=== PATIENT | male | born 1990 | race Caucasian/White ===

== ENCOUNTER → 2017-03-03 | Outpatient (REF) | payer OTHER | LOC: M LAB REF 13:04 | PROVIDERS: ATTEND Internal Medicine Medical Oncology | DX: C62.90 Malignant neoplasm of unspecified testis, unspecified whether descended or undescended (principal) ==

== ENCOUNTER → 2017-03-25 | Outpatient (REF) | payer OTHER ==
[2017-03-25 14:07] LABS: INR 1.01
== END ==
LOC: M LAB REF 13:04
PROVIDERS: ATTEND Internal Medicine Medical Oncology
DX: C62.90 Malignant neoplasm of unspecified testis, unspecified whether descended or undescended (principal)

== ENCOUNTER → 2017-03-29 | Outpatient (CLI) | payer OTHER ==
[~2017-03-29] MED LIST: LIDOCAINE 2% MDV 20 ML VIAL As Ordered ONE; MIDAZOLAM INJ 2 MG/2 ML VIAL (J2250) As Ordered ONE; ceFAZolin 1GM INJ (J0690) As Ordered ONE; fentaNYL 100 MCG/2 ML INJECTION (J3010) As Ordered ONE
--- NOTE | 2017-04-07 13:54 | REPIR ---
DATE OF PROCEDURE: 03/29/2017 PREPROCEDURE DIAGNOSIS: Poor venous access. POSTPROCEDURE DIAGNOSIS: Poor venous access. PROCEDURE: Ultrasound and fluoroscopic guided right internal jugular vein Port-a-cath placement. SURGEON: Dr. Gregg Burden. QUARTER INSPECTOR: ANESTHESIA: Local with sedation with 1 mg of Versed, 50 mcg of Fentanyl and 40 mL of 2% lidocaine. ESTIMATED BLOOD LOSS: FLUORO TIME: 2.222 minutes. CONTRAST: None. ANCEF: 1 gram. SEDATION TIME: From 10:25 a.m. to 10:50 a.m. for a total of 25 minutes. COMPLICATIONS: None. DRAINS: None. SPECIMENS: None. IMPLANTS: Right internal jugular vein Port-a-cath. INDICATION: Patient is a 27-year-old male who requires access and will undergo placement of a right internal jugular vein Port-a-cath. Risks, benefits and alternative treatment options were discussed with the patient. PROCEDURE: The patient was taken to the angiography suite and placed supine on the angiography room table and then prepped and draped in a standard surgical fashion. A time out was conducted confirming the correct patient, procedure and laterality. The ultrasound was then used to evaluate the right internal jugular vein which was noted to be easily compressible, widely patent and free of thrombus. Ultrasound guided cannulation was performed with a micropuncture needle after anesthetizing the overlying skin with 2% lidocaine. Real-time concurrent ultrasound imaging of the entry of the needle into the right internal jugular vein was performed with a hard copy image preserved. The micropuncture wire was then advanced through the micropuncture needle which was upsized to a micropuncture sheath. The wire was advanced through the micropuncture sheath and was then used to sequentially dilate the right internal jugular vein under fluoroscopic guidance and an introducer sheath was positioned. The port was then placed with a pocket created in the right chest after anesthetizing the overlying skin with 2% lidocaine. The catheter was tunneled and brought out through the puncture wound at the right internal jugular vein entry site and then passed through the introducer sheath and positioned with the tip in the superior vena cava/right atrial junction. The port was aspirated and noted to aspirate easily and then flushed with heparinized saline. The incision was closed using #2-0 Vicryl in inverted interrupted fashion. The wound in the right neck was closed using a #3-0 Monocryl in inverted interrupted fashion. Steri-Strips and dressings were applied. Patient tolerated the procedure well. All instrument, sponge and needle counts were correct at the end of the case. There were no complications. Dr. Burden was present for and directed the entire case. Patient was transferred to the holding area and subsequently discharged in stable condition. RADIOLOGIC SUPERVISION INTERPRETATION: The initial ultrasound showed the right internal jugular vein to be widely patent, easily compressible and free of thrombus. The ultrasound was then used to guide cannulation with real-time concurrent visualization of the entry of the micropuncture needle into the right internal jugular vein with a hard copy image preserved. The right internal jugular vein was then sequentially dilated under fluoroscopic guidance with placement of an introducer sheath. The catheter was advanced through the introducer sheath and positioned with the tip in the superior vena cava/right atrial junction. Final fluoroscopic image showed the catheter to be in good position and alignment with the tip in the superior vena cava/right atrial junction with no pneumo- or hemothorax noted. The Port-a-cath is stable for use for access.
== END | disposition home or self-care (01) ==
LOC: M IRPRO 09:03
PROVIDERS: ATTEND Internal Medicine Medical Oncology
DX: C62.90 Malignant neoplasm of unspecified testis, unspecified whether descended or undescended (principal)
CPT/HCPCS: 36561; 76937; 77001; C1769; C1788; C1894; J0690; J2250; J3010

== ENCOUNTER → 2017-06-13 | Outpatient (REF) | payer OTHER ==
[2017-06-14 14:15] LABS: ALPHA FETOPROTEIN TUMOR QUANT 1.8 NG/ML (<8.1)
[2017-06-15 08:07] LABS: HCG SERUM TUMOR MARKER QUANT < 1 mIU/mL (0-3)
== END ==
LOC: M LAB REF 06-14 13:32
DX: C62.90 Malignant neoplasm of unspecified testis, unspecified whether descended or undescended (principal)
CPT/HCPCS: 84702

== ENCOUNTER → 2017-07-15 | Outpatient (CLI) | payer OTHER ==
[~2017-07-15] MED LIST changes: +LIDOCAINE 2% MDV 20 ML VIAL As Ordered; -LIDOCAINE 2% MDV 20 ML VIAL As Ordered ONE; -MIDAZOLAM INJ 2 MG/2 ML VIAL (J2250) As Ordered ONE; -ceFAZolin 1GM INJ (J0690) As Ordered ONE; -fentaNYL 100 MCG/2 ML INJECTION (J3010) As Ordered ONE
== END | disposition home or self-care (01) ==
LOC: M IRPRO 09:50
DX: Z45.2 Encounter for adjustment and management of vascular access device (principal); C62.90 Malignant neoplasm of unspecified testis, unspecified whether descended or undescended
CPT/HCPCS: 36590

== ENCOUNTER → 2017-10-17 | Outpatient (CLI) | payer OTHER ==
[~2017-10-17] MED LIST changes: +GASTROGRAFIN SOLUTION 30ML (Q9963) As Ordered; +ISOVUE-370 76% 100ML VIAL (Q9967) As Ordered; -LIDOCAINE 2% MDV 20 ML VIAL As Ordered
== END ==
LOC: M RAD 15:45
DX: C62.90 Malignant neoplasm of unspecified testis, unspecified whether descended or undescended (principal); K76.0 Fatty (change of) liver, not elsewhere classified
CPT/HCPCS: Q9963

== ENCOUNTER → 2017-11-07 | Outpatient (REF) | payer OTHER ==
[2017-11-08 08:29] LABS: ALPHA FETOPROTEIN TUMOR QUANT < 1.3 NG/ML (<8.1)
[2017-11-09 08:10] LABS: HCG SERUM TUMOR MARKER QUANT < 1 mIU/mL (0-3)
== END ==
LOC: M LAB REF 17:29
DX: C62.11 Malignant neoplasm of descended right testis (principal)

== ENCOUNTER → 2018-06-05 | Outpatient (CLI) | payer OTHER ==
[~2018-06-05] MED LIST changes: -GASTROGRAFIN SOLUTION 30ML (Q9963) As Ordered; +GASTROGRAFIN SOLUTION 30ML (Q9963) As Ordered ONE; -ISOVUE-370 76% 100ML VIAL (Q9967) As Ordered; +ISOVUE-370 76% 100ML VIAL (Q9967) As Ordered ONE
--- NOTE | 2018-06-07 08:35 | REP ---
Clinical: History of right testicular carcinoma. Technique: Axial contrast enhanced images from the lung bases to the pubic symphysis using oral (per protocol) and 100 ml Isovue 370 intravenous contrast material with coronal and sagittal re-formations. Comparison: 10/17/2017. Findings: Lung bases are clear. Visualized heart and pericardium normal. Mild fatty infiltration to the liver noted. Very subtle 1.7 cm hypodensity along the medial aspect of the right lobe and 2.3 cm hyperdensity along the lateral periphery of the right lobe are identified, and in retrospect can be vaguely noted on prior examination but remain stable. No new hepatic lesions are appreciated. Spleen, pancreas, gallbladder, bilateral adrenal glands and kidneys are normal. The enteric system is without obstruction or acute inflammatory process. Normal terminal ileum and appendix are identified in the right lower quadrant. Pelvis demonstrates normal bladder and age appropriate prostate/seminal vesicles. The patient appears to be status post right orchiectomy. No ascites. No adenopathy. No free air. Abdominal aorta and vasculature normal. Surrounding musculoskeletal structures are intact without all abnormality. Impression: 1. Fatty infiltration to the liver with two small stable lesions as described above which in retrospect can be faintly identified on prior examination but remains stable and likely represent small cysts and/or hemangioma. 2. No further acute abdominopelvic pathology appreciated. No evidence for metastatic disease or recurrence. Electronically Signed by Greg Leija MD 06/07/2018 08:26 A
== END ==
LOC: M RAD 11:20
PROVIDERS: ATTEND Internal Medicine Hematology & Oncology
DX: C62.91 Malignant neoplasm of right testis, unspecified whether descended or undescended (principal)
CPT/HCPCS: 74177; Q9963; Q9967

== ENCOUNTER → 2019-11-06 | Outpatient (CLI) | payer OTHER ==
--- NOTE | 2019-11-07 14:24 | REP ---
REASON FOR EXAM: Testicular carcinoma. There are no prior PET/CTs for comparison. Previous CT examination abdomen and pelvis, 06/05/2018, was reviewed. After the intravenous administration of 7.68 mCi of FDG-18, triplane whole body PET/CT was performed from the skull base to the mid thigh. No abnormal hypermetabolic activity is seen in the neck, chest, abdomen, or pelvis. IMPRESSION: Negative PET/CT. Electronically Signed by Elias Conroy DO 11/07/2019 05:05 P
== END ==
LOC: M PLARAD 13:31
PROVIDERS: ATTEND Physician Assistant
DX: Z85.47 Personal history of malignant neoplasm of testis (principal); D37.6 Neoplasm of uncertain behavior of liver, gallbladder and bile ducts
CPT/HCPCS: 78815; A9552